=== PATIENT | female | born 1970 | race Two or more races ===

== ENCOUNTER → 2022-10-02 | Emergency (ER) | payer OTHER ==
[~2022-10-02] VITALS: Ht 152.4 cm; Wt 65.8 kg
[~2022-10-02] MED LIST: BUTALBITAL; CELEBREX200MG PO; LEVOTHYROXINE25 MCG PO; SIMVASTATIN80 MG; ZIPSOR25 MG PO
== END | disposition home or self-care (01) ==
LOC: ER 12:54
DX: M79.645 Pain in left finger(s) (principal); M25.531 Pain in right wrist

== ENCOUNTER → 2025-03-04 | Emergency (ER) | payer OTHER ==
[~2025-03-04] VITALS: Ht 154.9 cm; Wt 55.8 kg
[~2025-03-04] MED LIST changes: +0.9 % SODIUM CHLORIDE 1,000 ML IV SCH; +CARAFATE1 GM PO; +FAMOTIDINE/PF 20 MG/2 ML VIAL ONE; +FAMOtidine 10 MG/ML (4ML VIAL) IV PUSH ONE; +KETOROLAC TROMETHAMINE 30 MG VIAL IV ONE; +KETOROLAC TROMETHAMINE 30 MG VIAL ONE; +LEVSIN/SL0.125 MG SL; +ONDANSETRON HCL 2 MG/ML VIAL IV ONE; +ONDANSETRON HCL 2 MG/ML VIAL ONE; +PEPCID AC20 MG PO; +PROTONIX40 MG PO
[2025-03-04 16:51] LABS: BASO % 0.6 % (0.1-1.2); EOS # 0.02 (0.04-0.54); EOS % 0.3 % (0.7-7.0); LYMPH # 2.18 (1.18-3.74); LYMPH % 31.5 % (19.3-53.1); MEAN PLATELET VOLUME 9.50 fl (9.4-12.4); MONO # 0.57 (0.24-0.82); MONO % 8.2 % (4.7-12.5); NEUT # 4.10 (1.56-6.13); NEUT % 59.3 % (34.0-71.1); RED CELL DISTRIBUTION WIDTH 12.6 % (11.6-14.4)
[2025-03-04 17:30] LABS: ALT/SGPT 99.0 U/L (12-78); AST/SGOT 41.0 U/L (15-37); BILIRUBIN TOTAL 0.69 mg/dL (0.3-1.2); BUN CREA RATIO 30.0 (7.0-25.0); CREATININE SERUM 0.83 mg/dL (0.55-1.02); GFR 72.19; GLOBULINA 3.6 G/DL (2.4-3.5); GLUCOSE FASTING 86.0 mg/dL (65-100); OSMOLALITY SERUM 283.0 MOSM/KG (275-295)
== END | disposition home or self-care (01) ==
LOC: ER 12:05
PROVIDERS: General Practice
DX: R10.9 Unspecified abdominal pain (principal); R11.10 Vomiting, unspecified; R10.13 Epigastric pain; R11.2 Nausea with vomiting, unspecified; A08.8 Other specified intestinal infections; E03.8 Other specified hypothyroidism; I10 Essential (primary) hypertension